=== PATIENT | female | born 1990 | race Caucasian/White ===

== ENCOUNTER 2016-08-13 07:20 | Emergency (ER) | payer MEDICAID ==
--- NOTE | 2016-08-13 07:47 | EDPHY ---
HPI/HX/ROS/PE/MDM Narrative: Chief complaint: Fevers, cough, vomiting HPI: 26-year-old female presenting with 3 days of fevers to 101, dry nonproductive cough, nausea vomiting, body aches, mild sore throat. Her 3-year- old daughter is having similar symptoms which began at the same time. No abdominal pain. No diarrhea or constipation. No urinary symptoms. Cough is nonproductive. Fever does go down with Tylenol. She is able to keep some fluids down. She denies past medical history. Does not have a history of asthma. ROS: 10 point Review of Systems is negative except as noted in the HPI. Physical exam: Gen: Awake, Alert, No Distress HEENT: Nose: no rhinorrhea Eyes: PERRLA, EOMI Mouth: Moist mucosa very mild oropharynx erythema without edema or exudate Neck: Supple, no JVD Chest: nontender, lungs clear to auscultation Heart: S1, S2 normal, no murmur Abd: Soft, non-tender, no guarding Back: no CVA tenderness, no midline tenderness Ext: no edema, non-tender Skin: no rash Neuro: CN II-XII intact, Sensation grossly intact, Strength 5/5 in bilateral upper and lower extremities ED Course: 26-year-old with viral upper respiratory symptoms. There are no findings suggesting a focal bacterial infection. Will send her home with some antiemetics and instructions for supportive therapy. Follow up with her primary care physician in 2-4 days if symptoms are not improving. There are no indications for antibiotics at this time. Patient is not an asthmatic so Tamiflu would not be indicated if she was flu positive. General Time Seen by Provider: 08/13/16 07:30 Initial Vital Signs: Initial Vital Signs Temperature (C) 36.7 C 08/13/16 07:27 Heart Rate 93 08/13/16 07:27 Respiratory Rate 16 08/13/16 07:27 Blood Pressure 124/88 H 08/13/16 07:27 O2 Sat (%) 96 08/13/16 07:27 O2 Delivery Mode Room Air Allergies/Adverse Reactions: latex Allergy (Verified 02/19/14 14:16) Home Medications: Medication Instructions Recorded Folic Acid 1 mg PO 01/07/12 lamoTRIgine [LamICTAL 100 MG (RX)] 300 mg PO 01/07/12 Pnv 07/02/12 Cephalexin [Keflex (*)] 500 mg PO TID #15 cap 02/19/14 Ondansetron Odt [Zofran Odt 4 mg 4 mg PO Q4 PRN #10 tab 08/13/16 (*)] Departure - Departure Disposition: Home, Routine, Self-Care Clinical Impression: Viral syndrome Condition: Good Instructions: Viral Syndrome (ED) Additional Instructions: Alternate acetaminophen and ibuprofen every 3-4 hours as needed for aches and pains and fever. You may use ondansetron for nausea. Make sure to drink plenty of fluids and wash your hands frequently with soap and water. Follow up with her primary care physician in 3-4 days if symptoms are not improving. Referrals: [facility] [Outside] - As per Instructions Prescriptions: Ondansetron Odt [Zofran Odt 4 mg (*)] 4 mg PO Q4 PRN #10 tab PRN Reason: nausea
[2016-08-13] MEDS ORDERED: ONDANSETRON 4MG PREPACK#2 BTL TAKEHOME ONE (07:56)
[2016-08-13 08:22] VITALS: BP 108/76; PULSE 76; RESP 18; TEMP 209.3; O2SAT 93
== END 2016-08-13 08:13 | disposition home or self-care (01) ==
DX: B34.9 Viral infection, unspecified (principal); Z91.040 Latex allergy status

== ENCOUNTER 2018-02-24 19:31 | Emergency (ER) | payer MEDICAID ==
[2018-02-24 19:43] VITALS: BP 134/94
--- NOTE | 2018-02-24 19:58 | EDPHY ---
H & P Smoking Status: Never smoked Time Seen by Provider: 02/24/18 19:49 HPI/ROS: CHIEF COMPLAINT: Burn right hand HISTORY OF PRESENT ILLNESS: 27-year-old female presents to the emergency department with a burn to her right hand. The incident happened 3 days ago. She states that she was making some jam and hot store up fell on her right hand. The patient held cool compresses on her hand for about 3 hr that evening. She presents now for evaluation. She is unsure of her last tetanus shot. She is right-hand dominant. ROS: Denies numbness or tingling in her fingers, retained foreign body. (Yaneth Ivy) Past Medical/Surgical History: Epilepsy (Yaneth Ivy) Social History: and lives in [place] (Yaneth Ivy) Physical Exam: On evaluation the patient has intact vesicles to the dorsal aspect of her left hand extending from the 1st MCP joint to the distal aspect of her thumb. It is not circumferential. There is no blistering or redness noted to the palm of the left thumb. There is also a very small intact vesicular lesions to the distal, palmar aspect of the right middle finger. No signs of infection. No evidence of circumferential bunch. Full range of motion of her fingers. (Yaneth Ivy) Constitutional: Initial Vital Signs Temperature (C) 37.2 C 02/24/18 19:40 Heart Rate 93 02/24/18 19:40 Respiratory Rate 16 02/24/18 19:40 Blood Pressure 134/94 H 02/24/18 19:40 O2 Sat (%) 97 02/24/18 19:40 O2 Delivery Mode Room Air Allergies/Adverse Reactions: latex Allergy (Verified 02/19/14 14:16) Home Medications: Medication Instructions Recorded Folic Acid 1 mg PO 01/07/12 lamoTRIgine [LamICTAL 100 MG (RX)] 300 mg PO 01/07/12 Pnv 07/02/12 Ondansetron Odt [Zofran Odt 4 mg 4 mg PO Q4 PRN #10 tab 08/13/16 (*)] MDM/Departure - MDM Medications Given: Discontinued Medications Diphtheria/Tetanus/Acell Pertussis (Boostrix) 0.5 ml IM .ONCE ONE Stop: 02/24/18 20:11 Last Admin: 02/25/18 04:46 Dose: Not Given ED Course/Re-evaluation: No evidence of circumferential bunch. The patient was given wound care precautions and wound healing center referral. The patient was discussed with Dr. Yumi Weldon, secondary supervising physician, who did not directly evaluate the patient but agrees with treatment and plan. (Yaneth Ivy) I did not see this patient while she was in the emergency department. However her care was discussed with the PA while the patient was in the department. I agree with treatment plan and management (Corey Mederos) - Depart Disposition: Home, Routine, Self-Care Clinical Impression: Partial thickness burn of left thumb Qualifiers: Encounter type: initial encounter Qualified Code(s): T23.212A - Burn of second degree of left thumb (nail), initial encounter Condition: Good Instructions: Second Degree Burn (ED), Acute Wounds (ED) Additional Instructions: Follow-up with wound care clinic next week to recheck. Your given a tetanus shot today in the emergency department. Please document this for your records. Referrals: Kiley Petty DO [Primary Care Provider] - As per Instructions [facility] [Clinic] - 2-3 days without fail (Burn treatment)
[2018-02-24] MEDS ORDERED: TDAP ADULT 0.5 ML INJ (BOOSTRIX) IM ONE (20:10)
== END 2018-02-24 20:26 | disposition home or self-care (01) ==
DX: T23.212A Burn of second degree of left thumb (nail), initial encounter (principal); Z23 Encounter for immunization; X10.1XXA Contact with hot food, initial encounter; Y93.G3 Activity, cooking and baking